=== PATIENT | male | born 1980 ===

== ENCOUNTER 2017-03-30 13:25 | Emergency (ER) | payer OTHER, MEDICAID ==
[2017-03-30 13:47] VITALS: BP 138/85; PULSE 77; RESP 16; TEMP 98.4; O2SAT 98; BMI 36.2
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
== END 2017-03-30 15:22 | disposition home or self-care (01) ==
LOC: ED 13:25
DX: M54.5 Low back pain (principal)